=== PATIENT | male | born 1945 ===

== ENCOUNTER 2024-10-07 13:21 | Inpatient (IN) ==
[2024-10-07] MEDS ORDERED: IOPAMIDOL 100 ML BOTTLE IV ONE (13:22)
[2024-10-07 14:17] LABS: Basophils # (Auto) 0.02 K/mcL (0.00-0.30); Basophils % (Auto) 0.2 % (0.0-2.0); Eosinophils # (Auto) 0.18 K/mcL (0.00-0.70); Eosinophils % (Auto) 1.7 % (0.0-7.0); Hematocrit 42.3 % (40.1-51.0); Hemoglobin 13.9 g/dL (13.7-17.5); Lymphocytes % (Auto) 11.4 % (15.5-49.0); Mean Cell Volume 85.1 fL (80.0-100.0); Mean Corpuscular HGB Conc 32.9 g/dL (31.0-36.0); Mean Platelet Volume 9.5 fL (8.8-12.5); Monocytes # (Auto) 0.85 K/mcL (0.10-0.90); Monocytes % (Auto) 8.1 % (1.0-12.0); Neutrophils % (Auto) 78.4 % (38.0-78.0); Platelet Count 292 K/mcL (140-440); RBC 4.97 M/mcL (4.63-6.08); Red Cell Distribution Width 13.1 % (11.5-14.5); WBC 10.5 K/mcL (4.5-11.0)
[2024-10-07 14:41] LABS: ALT/SGPT 11 U/L (<40); AST/SGOT 18 U/L (<40); Albumin 3.2 gm/dL (3.2-5.2); Albumin/Globulin Ratio 0.7 (1.0-2.3); Alkaline Phosphatase 91 U/L (39-117); Bilirubin,Total 0.7 mg/dL (0.1-1.0); Blood Urea Nitrogen 20 mg/dL (8-23); Calcium 9.1 mg/dL (8.6-10.4); Carbon Dioxide 21 mmol/L (22-30); Chloride 99 mmol/L (96-108); Globulin 4.3 gm/dL (2.2-3.7); Glomerular Filtration Rate 90; Glucose 119 mg/dL (70-105); Potassium 3.9 mmol/L (3.3-5.1); Sodium 133 mmol/L (133-145)
[2024-10-07] MEDS: methylPREDNISolone SOD SUCC 125 MG/2 ML VIAL IV ONE (16:20)
[2024-10-07] MEDS: IPRATROPIUM/ALBUTEROL 3 ML AMPUL.NEB NEB ONE (16:20)
[2024-10-07] MEDS ORDERED: IBUPROFEN 200 MG TABLET PO PRN (17:02)
[2024-10-07] MEDS ORDERED: ACETAMINOPHEN 325 MG TABLET PO PRN (20:45)
[2024-10-07] MEDS ORDERED: traZODone HCL 50 MG TABLET PO PRN (20:45)
[2024-10-07] MEDS ORDERED: ONDANSETRON 4 MG/2 ML VIAL IV PRN (20:45)
[2024-10-07] MEDS: AZITHROMYCIN 500 MG in DEXTROSE 5% IN WATER 250 ML IV SCH (21:39)
[2024-10-07] MEDS: 0.9 % SODIUM CHLORIDE 10 ML SYRINGE IV SCH (21:40)
[2024-10-07] MEDS: IPRATROPIUM/ALBUTEROL 3 ML AMPUL.NEB NEB SCH (21:40)
[2024-10-07] MEDS: methylPREDNISolone SOD SUCC 40 MG/ML VIAL IV SCH (21:47)
[2024-10-07] MEDS: SENNOSIDES 1 TABLET PO SCH (21:47)
[2024-10-07] MEDS: DOCUSATE SODIUM 100 MG CAPSULE PO SCH (21:47)
[2024-10-07] MEDS: cefTRIAXone 2 GM in DEXTROSE 5% IN WATER 50 ML IV SCH (22:53)
[2024-10-08 06:53] LABS: Basophils # (Auto) 0.01 K/mcL (0.00-0.30); Basophils % (Auto) 0.1 % (0.0-2.0); Eosinophils # (Auto) 0 K/mcL (0.00-0.70); Eosinophils % (Auto) 0 % (0.0-7.0); Hemoglobin 13.1 g/dL (13.7-17.5); Lymphocytes # (Auto) 0.48 K/mcL (1.50-4.80); Lymphocytes % (Auto) 6.2 % (15.5-49.0); Mean Cell Volume 85.3 fL (80.0-100.0); Mean Corpuscular HGB Conc 32.8 g/dL (31.0-36.0); Mean Platelet Volume 9.5 fL (8.8-12.5); Monocytes # (Auto) 0.13 K/mcL (0.10-0.90); Monocytes % (Auto) 1.7 % (1.0-12.0); Neutrophils % (Auto) 91.9 % (38.0-78.0); Platelet Count 291 K/mcL (140-440); RBC 4.69 M/mcL (4.63-6.08); Red Cell Distribution Width 13.1 % (11.5-14.5); WBC 7.8 K/mcL (4.5-11.0)
[2024-10-08 07:13] LABS: Blood Urea Nitrogen 21 mg/dL (8-23); Calcium 9.3 mg/dL (8.6-10.4); Carbon Dioxide 22 mmol/L (22-30); Chloride 100 mmol/L (96-108); Glomerular Filtration Rate 85; Glucose 193 mg/dL (70-105); Potassium 3.9 mmol/L (3.3-5.1); Sodium 133 mmol/L (133-145)
[2024-10-08] MEDS: FLUTICASONE PROPIONATE SPRAY.NAS NS SCH (08:54)
[2024-10-08] MEDS: ENOXAPARIN 40 MG/0.4 ML SYRINGE SQ SCH (09:05)
[2024-10-08] MEDS: ATORVASTATIN 10 MG TABLET PO SCH (09:05)
[2024-10-08] MEDS: OMEPRAZOLE 20 MG CAPSULE PO SCH (09:05)
[2024-10-08] MEDS: AZITHROMYCIN 500 MG in 0.9 % SODIUM CHLORIDE 250 ML IV SCH (11:36)
[2024-10-08 12:04] LABS: Phosphorous 2.5 mg/dL (2.5-4.5)
[2024-10-08] MEDS: POLYETHYLENE GLYCOL 3350 17 GM PACKET PO PRN (13:18)
[2024-10-08] MEDS ORDERED: IPRATROPIUM/ALBUTEROL 3 ML AMPUL.NEB NEB PRN (13:28)
[2024-10-08] MEDS: predniSONE 20 MG TABLET PO SCH (20:31)
[2024-10-09] MEDS: guaiFENesin/DEXTROMETHORPHAN 5ML UD CUP PO PRN (07:24)
[2024-10-09] MEDS: FUROSEMIDE 20 MG/2 ML VIAL IV ONE (10:49)
[2024-10-10] MEDS: predniSONE 20 MG TABLET PO SCH (08:10)
== END 2024-10-10 14:31 | DRG 189 ==
LOC: ED 13:21 → MEDSUR 20:45
PROVIDERS: ADMIT Internal Medicine; ATTEND Internal Medicine